=== PATIENT | male | born 1935 | race Caucasian/White ===

== ENCOUNTER 2018-04-30 05:20 | Emergency (ER) | payer MEDICARE, OTHER ==
[2018-04-30 05:28] VITALS: BP 153/69
[2018-04-30] MEDS ORDERED: Ondansetron 4 MG/2 ML SDV IVPUSH STA (05:39)
[2018-04-30] MEDS ORDERED: HYDROmorphone 0.5 MG/0.5 ML SYRINGE IVPUSH STA (05:39)
--- NOTE | 2018-04-30 05:45 | EDM.PDOC ---
ED HPI GENERAL MEDICAL PROBLEM - General Chief Complaint: Head Injury Stated Complaint: FALL INJURY TO EYE AND NOSE Time Seen by Provider: 04/30/18 05:30 Source of Information: Reports: Patient, Family () History Limitations: Reports: No Limitations - History of Present Illness INITIAL COMMENTS - FREE TEXT/NARRATIVE: The patient states that he fell out of bed while asleep around 03:30 this morning, striking his face on a bedside table. He presents with a laceration to his upper right eyelid, along with swelling significant enough that he cannot really open his right eye. He states that the area is quite painful. He is otherwise uninjured. The patient does not take any anticoagulants or aspirin. The patient's PCP is Dr. Gisel Lamas. Headache Pain Score (Numeric/FACES): 6 - Related Data Allergies Allergy/AdvReac Type Severity Reaction Status Date / Time No Known Allergies Allergy Verified 04/30/18 05:25 Home Meds: Home Meds 5x Prostrate Sawpalmetto. 02/03/15 [History] Areds 2. 02/03/15 [History] Ascorbic Acid [Vitamin C] 2,000 mg PO DAILY 02/03/15 [History] Cholecalciferol (Vitamin D3) [Vitamin D3] 4,000 unit PO DAILY 02/03/15 [History] Chondroitin. 02/03/15 [History] Chromax. 02/03/15 [History] Cinnamon. 02/03/15 [History] Coq10. 02/03/15 [History] Fish Oil/[place]-3 Fatty Acids [Fish Oil] 1 each PO DAILY 02/03/15 [History] Glucosamine HCl [Glucosamine] 3,000 mg PO 02/03/15 [History] Losartan [Cozaar] 50 mg PO DAILY 02/03/15 [History] Multivitamin. 02/03/15 [History] Vitamin E. 02/03/15 [History] atorvaSTATin [Lipitor] 10 mg PO BEDTIME 02/03/15 [History] metFORMIN [Glucophage] 500 mg PO BIDMEALS 02/03/15 [History] Pantoprazole [Protonix] 40 mg PO DAILY #30 tab.cr 02/06/15 [Rx] Past Medical History HEENT History: Reports: Hard of Hearing (pt forgot to bring his hearing aides), Impaired Vision Cardiovascular History: Reports: High Cholesterol, Hypertension Gastrointestinal History: Reports: GERD, GI Bleed Musculoskeletal History: Reports: Fracture (left wrist, as a child) Endocrine/Metabolic History: Reports: Obesity/BMI 30+ - Past Surgical History HEENT Surgical History: Reports: Cataract Surgery, Oral Surgery (Dental extractions) GI Surgical History: Reports: Appendectomy Musculoskeletal Surgical History: Reports: ORIF (left wrist) Social & Family History - Tobacco Use Smoking Status *Q: Former Smoker Years of Tobacco use: 24 Packs/Tins Daily: 1 Month/Year Tobacco Last Used: Quit 1975 - Alcohol Use Alcohol Use History: Yes Alcohol Use Frequency: Socially - Recreational Drug Use Recreational Drug Use: No - Living Situation & Occupation Living situation: Reports: , with Spouse Occupation: Retired ED ROS GENERAL - Review of Systems Review Of Systems: ROS reveals no pertinent complaints other than HPI. ED EXAM, HEAD INJURY - Physical Exam Exam: See Below Exam Limited By: No Limitations General Appearance: Alert, WD/WN Head: Normocephalic, Other (Swelling and ecchymosis about the right eye, significant enough that the patient cannot open his right eye. There appears to be a linear skin tear to the upper eyelid, as well as a laceration to the lower lateral aspect of the upper right eyelid. No other identifiable injuries at this time. There is bony tenderness to palpation under the right eyebrow.) Ears: Normal External Exam, Hearing Loss Nose: Normal Inspection, Normal Mucousa, No Blood Throat/Mouth: Normal Inspection, Normal Lips, Normal Teeth, Normal Gums, Normal Oropharynx, Normal Voice, No Airway Compromise Neck: Full Range of Motion, Normal Inspection Course - Vital Signs Last Recorded V/S: Last Vital Signs Temp 36.7 C 04/30/18 05:26 Pulse 63 04/30/18 05:26 Resp 16 04/30/18 05:26 BP 153/69 H 04/30/18 05:26 Pulse Ox 96 04/30/18 05:26 - Orders/Labs/Meds Meds: Medications Discontinued Medications Generic Name Dose Route Start Last Admin Trade Name Freq PRN Reason Stop Dose Admin Hydromorphone HCl 0.5 mg 04/30/18 05:39 04/30/18 05:47 Dilaudid IVPUSH 04/30/18 05:40 0.5 mg ONETIME STA Administration Hydromorphone HCl 0.5 mg 04/30/18 06:36 04/30/18 07:00 Dilaudid IVPUSH 04/30/18 06:37 0.5 mg ONETIME ONE Administration Ondansetron HCl 4 mg 04/30/18 05:39 04/30/18 05:47 Zofran IVPUSH 04/30/18 05:40 4 mg ONETIME STA Administration - Re-Assessments/Exams Free Text/Narrative Re-Assessment/Exam: 04/30/18 06:39 The skin tear to the right upper eyelid cannot be sutured. I will recommend keeping the wound clean and applying a thin smear of an antibiotic on it. The laceration to the lower lateral aspect of the lid could in theory be sutured, however, given the swelling, it would be too difficult and painful. It appears that the wound would likely heal well on its own with keeping it clean and antibiotic ointment as well. I don't believe either wound require suturing. 04/30/18 07:05 CT of the facial bones without contrast is read by Dr. Almeida as: 1. Retrobulbar hematoma on the right side. Right periorbital soft tissue swelling is seen. 2. Mildly depressed inferior orbital floor fracture on the right side as well as fracturing within the inferomedial and medial orbital wall with extension into the nasal cavity and bowing of the medial orbital wall into the ethmoid sinus. 3. Areas of mucosal thickening within the paranasal sinuses as noted above. 4. Soft tissue air around the right orbit secondary to the fracture into the paranasal sinuses. 04/30/18 07:[address] [facility] at 07:11. Case then discussed with Dr. Zepeda, maxillofacial surgeon at [facility] , at 07:12. He is concerned about the retrobulbar hematoma, and believes that the patient should have an Ophthalmologic examination. Since we do not have Ophthalmology here in [place], the patient will need to be transferred, however, Dr. Zepeda wanted us to first make sure that Ophthalmology was available. I was then put in contact with the office of Dr. Guidry, Compugraph Operator at [facility], at 07:17. Dr. Guidry is not yet in the office, but is expected in about 5 minutes. A message was left for him to contact [facility], who will then call us back. The CT images were push to [facility] at 07:16. 04/30/18 07:[address] Guidry, Compugraph Operator at [facility], at 07: 23. He will be able to evaluate the patient at [facility]. Case then discussed with Dr. Bill, Emergency Physician at [facility], at 07:26. He accepts the patient for transfer to their ED. 04/30/18 07:40 As a retrobulbar hematoma is vision-threatening, time is of the essence. Due to unavailability of ground ambulances at this time, the patient will be flown by helicopter. A [email or web address] [email or web address] crew will not be available for 2-1/2 hours, therefore we have requested a [facility] helicopter. 04/30/18 07:45 The above plan was discussed with the patient and his . They are agreeable. Departure - Departure Time of Disposition: 07:29 Disposition: DC/Tfer to Acute Hospital 02 Condition: Fair Clinical Impression: Periorbital hematoma of right eye, Orbital floor fracture, Medial orbital wall fracture, Fall at home - Discharge Information
[2018-04-30] MEDS ORDERED: HYDROmorphone 0.5 MG/0.5 ML SYRINGE IVPUSH ONE ×2 (06:36→08:08)
--- NOTE | 2018-04-30 07:30 | CT ---
CT facial bones Technique: Multiple axial sections through the facial bones were obtained. Intravenous contrast was not utilized. Reconstructed coronal and sagittal images were obtained. Findings: Inferior right orbital floor fracture is seen which is depressed by about 4.3 mm. Fracture is also noted within the inferomedial orbital wall into the nasal cavity. Medial orbital wall fracture is also seen on the right side with slight bowing into the ethmoid sinuses. Increased density is seen behind the orbit compatible with hematoma. Soft tissue air is noted around the right orbit compatible with the sinus fracture. Mild areas of mucosal thickening are seen within the right maxillary sinus as well as within the right ethmoid sinus. Minimal mucosal thickening is seen within the right frontal sinus and left anterior ethmoid sinus. No additional facial bone fracture is seen. Soft tissue swelling is noted around the right orbit. Impression: 1. Retrobulbar hematoma on the right side. Right periorbital soft tissue swelling is seen. 2. Mildly depressed inferior orbital floor fracture on the right side as well as fracturing within the inferomedial and medial orbital wall with extension into the nasal cavity and bowing of the medial orbital wall into the ethmoid sinus. 2. Areas of mucosal thickening within the paranasal sinuses as noted above. 3. Soft tissue air around the right orbit secondary to the fracture into the paranasal sinuses. Diagnostic code #5
== END 2018-04-30 08:50 ==
LOC: JD.ED 05:20
DX: S02.31XA Fracture of orbital floor, right side, initial encounter for closed fracture (principal); E78.00 Pure hypercholesterolemia, unspecified; I10 Essential (primary) hypertension; Z87.891 Personal history of nicotine dependence; Z79.899 Other long term (current) drug therapy; W19.XXXA Unspecified fall, initial encounter; Y92.009 Unspecified place in unspecified non-institutional (private) residence as the place of occurrence of the external cause
CPT/HCPCS: 70486; 96374; 96375; 96376; 99285; J1170; J2405